=== PATIENT | male | born 1945 | race Caucasian/White ===

== ENCOUNTER 2024-03-10 23:49 | Emergency (ER) | payer MEDICARE ==
[~2024-03-10] VITALS: Ht 180.3 cm; Wt 130.0 kg
[2024-03-10 23:53] VITALS: O2SAT 97
[2024-03-11 03:02] LABS: BASOPHILS % 0.7 % (0.0-2.0); DIFFERENTIAL COMMENT 0; EOSINOPHILS % 3.8 % (0.0-5.0); HEMATOCRIT. 48.2 % (42.0-52.0); HEMOGLOBIN. 15.9 g/dL (14.0-18.0); LYMPHOCYTES % 22.9 % (20.0-50.0); MEAN CORPUSCULAR HEMOGLOBIN 34.2 pg (28.0-32.0); MEAN CORPUSCULAR VOLUME 103.6 fL (80.0-94.0); MEAN PLATELET VOLUME 8.6 fl (7.4-10.4); MONOCYTES % 8.4 % (2.0-8.0); NEUTROPHILS % 64.2 % (40.0-76.0); PLATELET 123 x1000/uL (130-400); RED BLOOD CELL COUNT 4.65 mill/uL (4.7-6.1); RED CELL DISTRIBUTION WIDTH 15.3 % (11.6-14.6); WHITE BLOOD COUNT 4.9 x1000/uL (4.5-11.0)
[2024-03-11 03:03] LABS: POTASSIUM 3.7 mEq/L (3.5-5.1)
[2024-03-11 03:09] LABS: CREATININE 1.4 mg/dL (0.6-1.3)
[2024-03-11 04:30] VITALS: BP 163/91; PULSE 78; RESP 12; TEMP 36.89184; O2SAT 97
[2024-03-11] MEDS: IOHEXOL-350 100 ML BOTTLE ONE (07:15)
== END 2024-03-11 11:13 | disposition home or self-care (01) ==
LOC: ER 23:49
DX: I67.1 Cerebral aneurysm, nonruptured (principal); Z04.3 Encounter for examination and observation following other accident; I11.0 Hypertensive heart disease with heart failure; E78.5 Hyperlipidemia, unspecified; E11.9 Type 2 diabetes mellitus without complications; I48.91 Unspecified atrial fibrillation; I50.9 Heart failure, unspecified; Z79.01 Long term (current) use of anticoagulants; Z86.73 Personal history of transient ischemic attack (TIA), and cerebral infarction without residual deficits
CPT/HCPCS: 99285; 70496; 80048; 85025; 36415; 70498; 70450; Q9967